=== PATIENT | male | born 1980 | race Caucasian/White ===

== ENCOUNTER 2017-04-29 10:52 | Emergency (ER) | payer OTHER ==
[~2017-04-29] VITALS: Ht 177.8 cm; Wt 110.7 kg
[~2017-04-29 10:52] MED LIST: PANT40TA PO
[2017-04-29 10:56] VITALS: BP 145/96; PULSE 84; TEMP 36.7; O2SAT 96; Ht 177.8 cm; Wt 110.7 kg
--- NOTE | 2017-04-29 11:24 | EMERGENCY ROOM VISIT NOTE ---
History First contact with patient: 11:02 Chief Complaint: LACERATION/CUT (SUT/DERMABOND) Stated Complaint: CUTS ON CHIN Nursing Triage Summary: Abrasions noted to chin, pt states a grinding whell blew up and hit his chin, seveal abrasions noted to chin, bleeding controlled, pt UTD on Td, states pain a 2 out of 10, call segal within reach. History of Present Illness The patient is a 36 year old male who presents to the Emergency Room with complaints of a laceration to his chin. The patient states that he was using a grinding wheel at work and at the wheel "blew up" and hit him in the chin. He states that the wheel is made out of carbon. He sustained some small lacerations to the chin but became concerned because they appeared to be dirty. He is unsure when his last tetanus was. He rates his discomfort a 2/10 and states it is stinging in nature. He denies any injury to his eyes or other injuries. Review of Systems A complete 10 point review of systems was reviewed with the patient with pertinent positives and negatives as per history of present illness. All else were negative. Past Medical/Surgical History Surgical Problems: (1) Hernia (2) S/P cholecystectomy Family History Patient reports no known family medical history. Social History Smoking Status: Current Every Day Smoker Alcohol Use: none Marital Status: Housing Status: lives with family Occupation Status: employed Current/Historical Medications Scheduled Pantoprazole (Protonix), Unknown Dose PO BID Physical Exam Vital Signs Date Time Temp Pulse Resp B/P (MAP) Pulse Ox O2 Delivery O2 Flow Rate FiO2 04/29/17 10:56 36.7 84 18 145/96 96 Room Air Physical Exam VITALS: Vitals are noted on the nurse's note and reviewed by myself. Vital signs stable. GENERAL: This is a 36-year-old male, in no acute distress, nondiaphoretic, well- developed well-nourished. SKIN: There are 3 small superficial laceration/abrasions to the anterior aspect of the chin. The largest measures 2 cm. There are a few small scattered black foreign bodies throughout the wounds. MOUTH: Mucous membranes moist, no injuries to the inside of the mouth. NEURO: Patient was alert and oriented to person place and time. Medical Decision & Procedures Medications Administered Medications (Trade) Dose Ordered Sig/Alyse Route Start Time Stop Time Status Last Admin Dose Admin Diphtheria/ Pertussis/Tetanus Vacc (Adacel Inj) 0.5 ml ONCE ONCE IM. 04/29/17 11:30 04/29/17 11:31 DC 04/29/17 11:46 0.5 ML Procedure The lacerations were flushed with sterile saline. The wounds were cleansed with Betadine. Forceps were used to remove 3 small black foreign bodies from the laceration/abrasions. The wounds were again irrigated with sterile saline. The patient tolerated the procedure well. Medical Decision The patient was evaluated as above. A few small foreign bodies were removed as noted in the procedure section. Patient's tetanus was updated. Wound care instructions were discussed with the patient. He verbalized understanding of my assessment and treatment plan and was discharged home in good condition. Medication Reconcilliation Current Medication List: was personally reviewed by me Blood Pressure Screening Patient's blood pressure: Elevated blood pressure Blood pressure disposition: Elevated BP felt to be situational Impression Primary Impression: Superficial laceration of face Departure Information Dispostion Home / Self-Care Condition GOOD Referrals Shania Daigle M.D. (PCP) Patient Instructions My [facility] Additional Instructions For pain control, you can use the following [id number] medicines (if >12 yo): - Regular strength (325mg/tab) Tylenol (acetaminophen) 2 tabs every 4-6 hours as needed. Do not exceed 12 tablets in a 24 hour period. Avoid taking more than 4 grams (4000 mg) of Tylenol per day. This includes any other sources of acetaminophen you may take on a regular basis. - Regular strength (200 mg/tab) Advil (ibuprofen) 1-2 tabs every 4-6 hours as needed. Do not exceed a dose of 3200 mg per day. Apply antibiotic ointment to the wounds after washing with soap and water. Return here for any signs of infection such as increasing redness, swelling, drainage or fevers.
[2017-04-29] MEDS ORDERED: DIPHTHERIA/TETANUS/PERTUSSIS 0.5 ML SYR/VIAL IM. ONE (11:30)
== END 2017-04-29 11:53 | disposition home or self-care (01) ==
LOC: C.EDB 10:54 → C.EDD 11:53
DX: S01.82XA Laceration with foreign body of other part of head, initial encounter (principal); W31.89XA Contact with other specified machinery, initial encounter; Y92.89 Other specified places as the place of occurrence of the external cause; Y99.0 Civilian activity done for income or pay; F17.210 Nicotine dependence, cigarettes, uncomplicated; Z79.899 Other long term (current) drug therapy